=== PATIENT | male | born 1970 | race Caucasian/White ===

== ENCOUNTER → 2024-05-28 | Emergency (ER) | payer BC ==
[~2024-05-28] VITALS: Ht 175.3 cm; Wt 108.9 kg
[~2024-05-28] MED LIST: CIPRO500 MG PO; DILTIAZEM 24HR240 M1 PO; FENOFIBRATE145 MG PO; FLOMAX0.4 MG PO; LOSARTAN POTASS25 MG PO; METFORMIN HCL500 MG PO; TYLENOL WITH C1 EACH PO; ULTRAM 50MG50 MG PO
[2024-05-28 16:21] VITALS: PULSE 66; RESP 15; TEMP 98.6; O2SAT 97
== END | disposition home or self-care (01) ==
LOC: ER 16:17
DX: S46.211A Strain of muscle, fascia and tendon of other parts of biceps, right arm, initial encounter (principal); X50.0XXA Overexertion from strenuous movement or load, initial encounter; Y92.89 Other specified places as the place of occurrence of the external cause; I10 Essential (primary) hypertension; E78.5 Hyperlipidemia, unspecified; E78.00 Pure hypercholesterolemia, unspecified
CPT/HCPCS: 99284